=== PATIENT | male | born 1980 | race Caucasian/White ===

== ENCOUNTER 2017-07-23 19:00 | Day surgery (SDC) | payer OTHER ==
[~2017-07-23] VITALS: Ht 182.9 cm; Wt 99.8 kg
[2017-07-23] MEDS ORDERED: fentaNYL INJECTION 100 MCG/2 ML AMP IVP ONE ×3 (19:45→20:45)
[2017-07-23] MEDS ORDERED: CATHETER FLUSH 10 ML SYR IV PRN (19:45)
[2017-07-23 19:53] LABS: BASOPHILS % (AUTO) 0 % (0-10); EOSINOPHILS # (AUTO) 0.2 10^3/uL (0.0-0.3); EOSINOPHILS % (AUTO) 3 % (0-10); HEMATOCRIT 47 % (40-54); HEMOGLOBIN 16.2 G/DL (13.3-17.7); LYMPHOCYTES # (AUTO) 1.8 X 10^3 (1.0-4.0); LYMPHOCYTES % (AUTO) 18 % (12-44); MEAN CORPUSCULAR HEMOGLOBIN 30 PG (25-34); MEAN CORPUSCULAR HGB CONC 34 G/DL (32-36); MEAN CORPUSCULAR VOLUME 88 FL (80-99); MEAN PLATELET VOLUME 9.9 FL (7.4-10.4); MONOCYTES # (AUTO) 0.6 X 10^3 (0.0-1.0); MONOCYTES % (AUTO) 6 % (0-12); NEUTROPHILS # (AUTO) 7.1 X 10^3 (1.8-7.8); NEUTROPHILS % (AUTO) 73 % (42-75); PLATELET COUNT 234 10^3/uL (130-400); RED BLOOD COUNT 5.39 10^6/uL (4.35-5.85); RED CELL DISTRIBUTION WIDTH 12.5 % (10.0-14.5); WHITE BLOOD COUNT 9.7 10^3/uL (4.3-11.0)
[2017-07-23] MEDS ORDERED: MIDAZOLAM 5 MG/5 ML (VERSED) VIAL ONE ×2 (19:53→20:17)
[2017-07-23] MEDS: NS IV 1000 ML 1,000 ML IV SCH (20:00)
[2017-07-23] MEDS ORDERED: NS IV 1000 ML 1,000 ML ONE (20:02)
--- NOTE | 2017-07-23 20:05 | Diagnostic Imaging Report ---
INDICATION: Left ankle injury. COMPARISON: None. EXAMINATION: Three views of the left ankle were obtained. FINDINGS: Dislocation of the ankle mortise. The talus is displaced in the posterior lateral direction. There is a displaced angulated fracture of the distal fibula. The visualized medial malleolus is intact. IMPRESSION: Complex ankle fracture with severe dislocation. Dictated by: Dictated on workstation # [id number]
[2017-07-23] MEDS ORDERED: KETAMINE HCL 100 MG/ML 5 ML VIAL ONE (20:17)
[2017-07-23 20:21] LABS: BUN/CREATININE RATIO 14; CALCIUM 9.5 MG/DL (8.5-10.1); CARBON DIOXIDE 24 MMOL/L (21-32); CHLORIDE 104 MMOL/L (98-107); CREATININE SERUM 1.31 MG/DL (0.60-1.30); GFR ESTIMATED > 60; GLUCOSE 94 MG/DL (70-105); POTASSIUM 3.6 MMOL/L (3.6-5.0); SODIUM 142 MMOL/L (135-145)
--- NOTE | 2017-07-23 20:42 | Diagnostic Imaging Report ---
INDICATION: Post reduction. COMPARISON: 07/23/2017. EXAMINATION: Two views of the left ankle were obtained. FINDINGS: Relocation of the ankle mortise. There is improved alignment of the distal fibula fracture. IMPRESSION: Satisfactory post reduction views. Dictated by: Dictated on workstation # [id number]
[2017-07-23] MEDS ORDERED: KETAMINE HCL 100 MG/ML 5 ML VIAL IV ONE (20:45)
[2017-07-23] MEDS ORDERED: MIDAZOLAM 2 MG/2 ML (VERSED) VIAL IVP ONE ×2 (20:45)
--- NOTE | 2017-07-23 21:24 | History & Physicial ---
History of Present Illness History of Present Illness Reason for visit/HPI left ankle injury Mr. Mcrae is a 37 y/o white male who sustained a left ankle injury while at [facility] at 1745, this evening. He states that he was [place]. He immediately experienced pain in the left ankle and noted a gross deformity. Due to this EMS was called, and the patient elected to transfer to [facility], via private vehicle. He denies LOC or injury elsewhere. He denies loss of sensation in the foot or coldness. Date of Admission 07/23/17 Date Seen by Provider: Jul 23, 2017 Time Seen by Provider: 08:00 I consulted on this patient on 07/23/17 20:[address]ending [address]ician [address]LY Hamm Dr. Admitting Physician Dr. Russell Consult Allergies and Home Medications Allergies Coded Allergies: No Known Drug Allergies (Unverified , 07/23/17) Home Medications No Active Prescriptions or Reported Meds Past Todicdu-Wuchxx-Fmxjof Hx Patient Social History Alcohol Use: Occasionally Uses Recreational Drug Use: No Smoking Status: Never a Smoker Recent Foreign Travel: No Contact w/other who traveled: No Recent Hopitalizations: No Recent Infectious Disease Expo: No Immunizations Up To Date Date of Influenza Vaccine: Apr 25, 2017 Seasonal Allergies Seasonal Allergies: No Respiratory No Cardiovascular No Integumentary History of Skin or Integumenta: No Constitutional: see HPI, No chills, No dizziness, No fever Respiratory: no symptoms reported Cardiovascular: no symptoms reported Gastrointestinal: no symptoms reported Musculoskeletal: see HPI Skin: no symptoms reported Psychiatric/Neurological: No Symptoms Reported Physical Exam Vital Signs Vital Sign - Last 12Hours 07/23/17 07/23/17 19:40 20:00 Temp 99.0 Pulse 83 Resp 22 B/P (MAP) 136/88 (104) O2 Delivery Nasal Cannula O2 Flow Rate 2.00 Capillary Refill : Less Than 3 Seconds General Appearance: Mild Distress Eyes: Bilateral Eye Normal Inspection, Bilateral Eye PERRL, Bilateral Eye EOMI HEENT: Normal ENT Inspection, Pharynx Normal Neck: Full Range of Motion, Normal Inspection, Non Tender Respiratory: No Accessory Muscle Use, No Respiratory Distress Cardiovascular: Regular Rate, Rhythm, No Edema Gastrointestinal: Soft Back: Normal Inspection, No Vertebral Tenderness Extremity: Normal Capillary Refill, Other (Posterior lateral dislocation of the left ankle. Lateral rotation. Sensation and dorsalis pulses intact. Able to move toes. ) Neurologic/Psychiatric: Alert, Oriented x3, No Motor/Sensory Deficits, Normal Mood/Affect, executive vice president of sales II-XII Norm as Tested Skin: Normal Color Comments X-ray interpretation 3 view left ankle: Posterior/lateral ankle dislocation with distal fibula fracture present 2 view left ankle post reduction: adequate reduction, with distal fibula fracture present. No obvious tibia fracture present Procedure: Left ankle fracture/dislocation reduction performed Patient consent obtain Conscious sedation performed Reduction performed with traction and manipulation, and was successful with first attempt Post reduction x-rays revealed successful and adequate reduction Patient placed in a posterior and u-splint Patient tolerated procedure well, and without incident Assessment/Plan Assessment and Plan left ankle fracture dislocation Left fibula fracture Admit to Observation at this time and obtain a CT of the ankle Plan for ORIF of left ankle in the morning Problems: Admission Diagnosis left ankle fracture/dislocation CONI LYONS Jul 23, 2017 21:24
--- NOTE | 2017-07-23 21:46 | Diagnostic Imaging Report ---
PROCEDURE: CT left lower extremity without contrast. TECHNIQUE: Multiple contiguous axial images were obtained through the left lower extremity without the use of intravenous contrast. Sagittal and coronal reformations were then performed. INDICATION: Ankle trauma COMPARISON: 07/23/2017 FINDINGS: A nondisplaced fracture is seen involving the posterior medial aspect of the tibia. The medial malleolus appears intact. There is some bony fragmentation between the fibula and the tibia articulation. The distal tibia fracture is well aligned. The ankle mortise is intact. Soft tissue swelling is noted. Visualized tarsal bones appear unremarkable. IMPRESSION: 1. Posterior medial tibial metaphysis fracture with comminution. Medial malleolus is intact. 2. Stable well aligned distal fibula fracture. 3. Well aligned ankle mortise. Dictated by: Dictated on workstation # [id number]
[2017-07-23 22:15] VITALS: BP 129/81
[2017-07-23] MEDS ORDERED: morphine INJ 4 MG/ML 1 ML (VIAL/SYRINGE) IV PRN (22:30)
[2017-07-23] MEDS: LACTATED RINGERS 1,000 ML IV SCH (22:41)
[2017-07-24] VITALS: BP 141/69
[2017-07-24 04:00] VITALS: BP 118/58
[2017-07-24] MEDS ORDERED: fentaNYL INJECTION 100 MCG/2 ML AMP ONE ×2 (07:30→08:26)
[2017-07-24] MEDS ORDERED: MIDAZOLAM 2 MG/2 ML (VERSED) VIAL ONE (07:30)
[2017-07-24] MEDS ORDERED: ceFAZolin 1,000 MG (ANCEF) VIAL ONE (07:41)
[2017-07-24] MEDS: LACTATED RINGERS 1,000 ML IV SCH ×2 (07:50→09:20)
[2017-07-24] MEDS: NS IV 1000 ML 1,000 ML IV SCH (08:06)
[2017-07-24] MEDS ORDERED: BUPIVACAINE 0.25% 30 ML (SENSORCAINE) VIAL ONE (08:15)
[2017-07-24] MEDS ORDERED: ONDANSETRON 4 MG/2 ML (SDV) Z0FRAN ONE (08:27)
[2017-07-24] MEDS ORDERED: SEVOFLURANE (ULTANE) 15 ML INHAL SOLN ONE ×5 (08:27→10:00)
[2017-07-24] MEDS ORDERED: DEXAMETHASONE 10 MG/ML (DECADRON) 1 ML VIAL ONE (08:27)
[2017-07-24] MEDS ORDERED: LIDOCAINE PF 2% 5 ML (XYLOCAINE) VIAL ONE (08:27)
[2017-07-24] MEDS ORDERED: proPOfol 200 MG/20 ML (DIPRIVAN) VIAL IV ONE (08:27)
[2017-07-24] MEDS ORDERED: morphine INJ 10 MG/ML 1ML (SYR OR VIAL) ONE (09:36)
--- NOTE | 2017-07-24 10:00 | History & Physical-Surgical ---
HPO-Surgical History of Present Illness Chief Complaint: PT REPORTS HE WAS JUMPING ON TRAMPOLINES ET INJURED LEFT ANKLE. VISUALLY DISPLACED. PULSES PRESENT. JOSE MCHUGH AT BEDSIDE. Diagnosis/Surgical Indication: Fracture/dislocation Left ankle Procedure: ORIF Left ankle fracture Date of Surgery: Jul 24, 2017 Weight (Pounds): 220 Weight (Ounces): 0.0 Height (Feet): 6 Height (Inches): 0.00 Allergies and Home Medications Allergies Coded Allergies: No Known Drug Allergies (Unverified , 07/23/17) Home Medications No Active Prescriptions or Reported Meds Past Szewhzt-Bewcdp-Mlyccu Hx Patient Social History Marrital Status: Employed/Student: employed Alcohol Use: Occasionally Uses Recreational Drug Use: No Smoking Status: Never a Smoker Physical Abuse Screen: No Sexual Abuse: No Recent Foreign Travel: No Contact w/other who traveled: No Recent Hopitalizations: No Recent Infectious Disease Expo: No Immunizations Up To Date Tetanus Booster (TDap): More than 5yrs Date of Influenza Vaccine: May 25, 2017 Seasonal Allergies Seasonal Allergies: No Surgeries Yes Orthopedic Respiratory No Cardiovascular No Neurological No Reproductive System Sexually Transmitted Disease: No HIV/AIDS: No Genitourinary No Gastrointestinal No Musculoskeletal No Endocrine History of Endocrine Disorders: No HEENT History of HEENT Disorders: No Cancer No Psychosocial History of Psychiatric Problem: No Integumentary History of Skin or Integumenta: No Blood Transfusions History of Blood Disorders: No Adverse Reaction to a Blood Tr: No Family Medical History Significant Family History: No Pertinent Family Hx (Noncontributory with regards to the chief complaint.) Exam Vital Signs Vital Signs 07/23/17 07/24/17 20:00 04:00 Temp 99.0 Pulse 70 Resp 14 B/P (MAP) 118/58 (78) Pulse Ox 96 O2 Delivery Room Air O2 Flow Rate 2.00 Capillary Refill : Less Than 3 SecondsLess Than 3 Seconds Labs Laboratory Tests Test 07/23/17 19:45 Range/Units White Blood Count 9.7 4.3-11.0 10^3/uL Red Blood Count 5.39 4.35-5.85 10^6/uL Hemoglobin 16.2 13.3-17.7 G/DL Hematocrit 47 40-54 % Mean Corpuscular Volume 88 80-99 FL Mean Corpuscular Hemoglobin 30 25-34 PG Mean Corpuscular Hemoglobin Concent 34 32-36 G/DL Red Cell Distribution Width 12.5 10.0-14.5 % Platelet Count 234 130-400 10^3/uL Mean Platelet Volume 9.9 7.4-10.4 FL Neutrophils (%) (Auto) 73 42-75 % Lymphocytes (%) (Auto) 18 12-44 % Monocytes (%) (Auto) 6 0-12 % Eosinophils (%) (Auto) 3 0-10 % Basophils (%) (Auto) 0 0-10 % Neutrophils # (Auto) 7.1 1.8-7.8 X 10^3 Lymphocytes # (Auto) 1.8 1.0-4.0 X 10^3 Monocytes # (Auto) 0.6 0.0-1.0 X 10^3 Eosinophils # (Auto) 0.2 0.0-0.3 10^3/uL Basophils # (Auto) 0.0 0.0-0.1 10^3/uL Sodium Level 142 135-145 MMOL/L Potassium Level 3.6 3.6-5.0 MMOL/L Chloride Level 104 98-107 MMOL/L Carbon Dioxide Level 24 21-32 MMOL/L Anion Gap 14 5-14 MMOL/L Blood Urea Nitrogen 18 7-18 MG/DL Creatinine 1.31 H 0.60-1.30 MG/DL Estimat Glomerular Filtration Rate > 60 BUN/Creatinine Ratio 14 Glucose Level 94 70-105 MG/DL Calcium Level 9.5 8.5-10.1 MG/DL General Appearance: Alert, Oriented X3, Cooperative, No Acute Distress HEENT: Atraumatic, PERRLA Respiratory: Normal Air Movement Cardiovascular: Regular Rate Abdominal: Soft, No Tenderness Extremities: Other (LLE: splint in place Left ankle, foot well perfused, no increased pain with AROM of the digits, motor/sensation grossly intact.) Skin: No Significant Lesion Neuro: Strength at 5/5 X4 Ext, Sensation Intact, Cranial Nerves 3-12 NL Psych/Mental Status: Mental Status NL Assessment/Plan Assessment and Plan A: Fracture/dislocation Left ankle, s/p closed reduction in the ED. Unstable injury P: Will need operative fixation Will plan to proceed with surgery today. Risks/benefits of surgery explained in detail. All of the patient's questions have been answered to his satisfaction. The patient has given informed written consent to proceed as planned. Problems: Admission Diagnosis Fracture/dislocation Left ankle. LEXUS HUFFMAN DO Jul 24, 2017 10:00
--- NOTE | 2017-07-24 10:04 | Operative Report ---
Operative Report Date of Procedure/Surgery Jul 24, 2017 Surgeon (s) LEXUS HUFFMAN DO Beaver Trapper (s): Francisco Javier Richardson PA-C Post-Operative Diagnosis Displaced, comminuted fracture Left fibula Disruption of the syndesmosis Left ankle Procedure Performed ORIF Left fibula ORIF Left syndesmosis Description of Procedure Anesthesia Type: General Estimated blood loss (mL): 15 mL Specimen(s) collected/removed None Description of the Procedure Open reduction and internal fixation Left fibula; open reduction/internal fixation syndesmosis Left ankle. Findings of the Procedure Comminuted, displaced, unstable fracture Left fibula; complete disruption of the syndesmosis Left ankle with gross instability. Allergies and Home Medications Allergies Coded Allergies: No Known Drug Allergies (Unverified , 07/23/17) Home Medications No Active Prescriptions or Reported Meds LEXUS HUFFMAN DO Jul 24, 2017 10:04
[2017-07-24] MEDS ORDERED: oxyCODONE/APAP 5/325MG (PERCOCET 5) TABLET PO PRN (10:15)
[2017-07-24] MEDS ORDERED: ONDANSETRON 4 MG/2 ML (SDV) Z0FRAN IV PRN (10:15)
--- NOTE | 2017-07-24 11:35 | Diagnostic Imaging Report ---
EXAMINATION: Left ankle, fluoroscopic images. COMPARISON: July 23, 2017. HISTORY: 37-year-old female, left ankle fracture. FINDINGS: 28.3 seconds of fluoroscopic time was utilized for assistance with procedure. There has been placement of sideplate and screw fixation hardware along the distal fibula with fixation screws traversing across the syndesmosis. There are additional fibular screws. There are limitations of bone detail on fluoroscopic imaging. IMPRESSION: 1. Fluoroscopy for assistance with surgery. Dictated by: Dictated on workstation # [id number]
--- NOTE | 2017-07-24 11:51 | Discharge Inst-Surgical ---
Discharge Inst-Surgical Depart Medication/Instructions New, Converted or Re-Newed RX: RX on Chart Patient Instructions Please take 325mg of enteric coated aspirin daily for 3 weeks to help prevent blood clots. Consults/Follow Up Goal/Follow Up Appt.: Follow-up with Dr. Huffman at [address] in 10 days; please call the office to confirm your appointment. Activity Activity as Tolerated: Yes Strict Non Weight Bearing on you left leg. Walking Assistive Device: Crutches Activity Instructions: Avoid Stress to Incision Elevate Extremity: Elevate Above Heart Driving Instructions: No Driving/Refer to Dr. Carmona Spirometry: Every 2 Hours While Awake Diet Discharge Diet: No Restrictions Skin/Wound Care Infection Signs and Symptoms: Increased Redness, Increased Drainage, Increased Swelling, Temperature Above 101 F Wound Care Comment: Keep splint on at all times; do not remove splint; do not get splint wet. Bathing Instructions: Shower Ice Pack: Ice On and Off Site LEXUS HUFFMAN DO Jul 24, 2017 11:51
[2017-07-24] MEDS ORDERED: OXYC-471 PO (11:52)
[2017-07-24 12:03] VITALS: BP 135/87
--- NOTE | 2017-07-24 12:16 | Physical Therapy Evaluation ---
PT Evaluation-General Medical Diagnosis Admission Date Jul 23, 2017 at 20:57 Medical Diagnosis: L ankle ORIF Onset Date: Jul 23, 2017 Therapy Diagnosis Therapy Diagnosis: decreased mobility Height/Weight Height (Feet): 6 Height (Inches): 0.00 Weight (Pounds): 220 Weight (Ounces): 0.0 Precautions Precautions/Isolations: Standard Precautions Weight Bear Status Right Lower Extremity: Right Full Weight Bearing Left Lower Extremity: Left Non Weight Bearing Referral Physician: Dr. Russell Reason for Referral: Evaluation/Treatment Medical History Current History Pt. fell at [facility], sustained L ankle fracture. Reviewed History: Yes Social History Home: Single Level Current Living Status: Spouse Entry Into Home: Stairs Without Railing PT Steps Into Home: 2 Prior/Core FIM Prior Level of Function Functional [place] Measure 0=Not Assessed/NA 4=Minimal Assistance 1=Total Assistance 5=Supervision or Setup 2=Maximal Assistance 6=Modified [place] 3=Moderate Assistance 7=Complete [place] Bed Mobility: 7 Transfers (B,C,W/C) (FIM): 7 Gait: 7 Locomotion: 7 PT Evaluation-Current Subjective Pt. agrees to therapy, reports planning to D/C this date. Pt/Family Goals home with spouse Objective Patient Orientation: Normal For Age Problem Solving: Good ROM/Strength ROM Upper Extremities WNL ROM Lower Extremities WNL, except L ankle Strength Upper Extremities WNL Strength Lower Extremities WNL R LE, not tested L LE Integumentary/Posture Integumentary see nursing notes Bowel Incontinence: No Bladder Incontinence: No Posture generally upright Neuromuscular (Tone, Coordination, Reflexes) intact Sensory Vision: Functional Hearing: Functional Sensation Right Upper Extremit: Intact Sensation Left Upper Extremity: Intact Sensation Right Lower Extremit: Intact Sensation Left Lower Extremity: Intact Transfers Functional [place] Measure 0=Not Assessed/NA 4=Minimal Assistance 1=Total Assistance 5=Supervision or Setup 2=Maximal Assistance 6=Modified [place] 3=Moderate Assistance 7=Complete [place] Transfers (B, C, W/C) (FIM): 6 Sit to/from Stand: 6 Gait Mode of Locomotion: Walk Anticipated Mode of Locomotion: Walk Gait (FIM): 4 Distance (FIM): 7=930-33 ft Distance: 100 ft Gait Level of Assist: 4 Gait Persons Needed: 1 Gait Assistive Device: Crutches Comments/Gait Description CGA/SBA, cues for proper gait sequence with crutches Stairs Pt. declines stair training. We did discuss proper sequence with crutches and he verbalizes good understanding. Balance Sitting Static: Good Sitting Dynamic: Good Standing Static: Good Standing Dynamic: Fair Assessment/Needs Pt. is a 37 y.o. male s/p L ankle ORIF following fracture who presents with decreased mobility. Pt. is currently NWB L ankle and completed crutch training. Pt. demonstrated safety and good understanding with crutches, plans to D/C home this date. Rehab Potential: Good PT Short Term Goals Short Term Goals Time Frame: Jul 24, 2017 Transfers (B,C,W/C) (FIM): 6 Gait (FIM): 4 Distance (FIM): 6=111-66 ft Gait Assistive Device: Crutches PT Plan Treatment/Plan Treatment Plan: Discontinue PT, goals met Treatment Plan: Gait, Transfers Treatment Duration: Jul 24, 2017 Frequency: 1 visit and discharge Estimated Hrs Per Day: Other Patient and/or Family Agrees t: Yes Discharge Recommendations Equpiment Recommendations-D/C: Crutches Time/GCodes Time In: 1140 Time Out: 1200 Total Billed Treatment Time: 20 Total Billed Treatment 1, SHIRLEY 20' ISAURA MCELROY PT Jul 24, 2017 12:16
[2017-07-24 14:15] VITALS: BP 135/87
--- NOTE | 2017-07-25 13:51 | OPERATIVE REPORT ---
DATE OF SERVICE: 07/24/2017 PREOPERATIVE DIAGNOSES: 1. Closed, fracture dislocation, left ankle. 2. Disruption of the syndesmosis, left ankle. OPERATION PERFORMED: 1. Open reduction and internal fixation closed fracture dislocation, left ankle which included the comminuted fracture of the left distal fibula. 2. Open reduction and internal fixation syndesmotic disruption, left ankle. ATTENDING SURGEON: Dr. Lexus Huffman. MEDICAL INSURANCE BILLER: Francisco Javier Richardson PA-C; Mr. Richardson assistance was needed secondary to the complexity of this case, and to hold the critical and necessary retractors and to increase the efficiency and efficacy of the case. ANESTHESIA: General. ESTIMATED BLOOD LOSS: 10 mL. COMPLICATIONS: None. SPECIMENS: None. DRAINS: None. BRIEF HISTORY AND INDICATIONS: The patient is a pleasant 37-year-old male sustained an injury to his left ankle [place]. He had gross deformity of his left ankle, severe pain and an inability to bear weight or ambulate on his left lower extremity. He was transferred to the Emergency Department at [facility] where plain radiographs demonstrated a fracture dislocation of the left ankle which included a comminuted fracture of the left fibula and obvious disruption of the syndesmosis articulation. The patient underwent a successful closed reduction of the left ankle in the Emergency Department. He was admitted to the orthopedic service for definitive management of his injury. Preoperatively, the patient's left lower extremity was otherwise stable, this was a closed injury, there were no open wounds. His motor and sensory function were grossly intact, he had only mild posttraumatic edema surrounding the ankle, all compartments were soft and compressible, motor and sensation was grossly intact, the left foot was well perfused. I discussed the nature of this injury in detail with the patient as well as the need for operative fixation. I explained the operative procedure in detail with the patient, which included the risks, benefits, potential complications and expected outcomes. After having this detailed discussion, the patient gave informed written consent to proceed as planned after all of his questions were answered to his satisfaction. PROCEDURE NOTE: After correctly identifying the patient as the patient the preoperative holding area and after his left lower extremity was appropriately marked he was transferred to the operating room. Once in the operating room, the patient had successful induction of general anesthesia. Then, he was transferred to the radiolucent OR table and placed in the supine position. All bony prominences were meticulously padded. A nonsterile tourniquet was placed on the upper thigh of the left lower extremity. The left leg was then prepped and draped in the routine sterile orthopedic fashion. Prior to beginning the case, we completed an operating room timeout and verified appropriate infusion of prophylactic antibiotics. The tourniquet was then elevated to 300 mmHg after exsanguination of the left leg with an Esmarch bandage. I then used a sterile marking pen to pankaj out my planned a lateral approach to the ankle and then made an incision of approximately 10 cm in length incising through the skin and subcutaneous tissue after injecting local anesthetic. After incising through the skin and subcutaneous tissue, blunt Metzenbaum scissors were used to dissect through the deeper subcutaneous tissue and fascia of the lateral compartment, taking great care to protect the superficial branch of the peroneal nerve. I then identified the comminuted fracture of the distal fibula and debrided it in the usual fashion using both sharp and blunt techniques to minimize periosteal stripping. I reduced this comminuted fracture in the standard fashion with the [id number] reduction tenaculums and then applied absolute fixation of the fracture with a series of 2.7 mm fully threaded cortical lag screws. I then applied a Synthes variable angle distal fibular plate in neutralization mode on the distal fibula and completed the fixation both proximally and distally to the fracture in standard fashion with a series of both locking and nonlocking screws. At this point, I then completed an external rotation stress exam under fluoroscopy which did demonstrate medial clear space widening and widening of the syndesmotic articulation thereby confirming disruption and instability of the syndesmosis. As such, I did a further distal dissection exposing the anterior portion of the syndesmosis articulation, confirming obvious disruption of the anterior inferior tib-fib ligament. I completed an open reduction of the syndesmosis under fluoroscopic guidance and this reduction was held temporarily in place with a 2.0 mm K wire placed from lateral to medial. I then applied two 3.5 mm fully threaded cortical screws across the syndesmosis through the plate under fluoroscopic guidance achieving 4 cortices of fixation with both screws, thereby to complete the fixation of the syndesmosis after anatomic reduction. I then completed a subsequent and final external rotation stress exam under fluoroscopy and this confirmed stability of the syndesmosis as there was no secondary medial clear space widening or widening of the syndesmosis articulation. At this point, our fixation was complete. Final C-arm fluoroscopy imaging confirmed appropriate placement of all hardware and a stable ankle mortise. The tourniquet was then deflated, meticulous hemostasis was achieved, the wound was irrigated with copious amounts of sterile saline and then standard closure began and was completed with 0 Vicryl for the deep fascia, 2-0 Vicryl for the subcutaneous tissue and 3-0 nylon for the skin. The patient had a sterile dressing applied followed by a well-padded three-sided splint. He was then awakened from general anesthesia in the operating room without complications and then transferred to the PACU in stable condition. He tolerated the procedure well without complications. All counts were correct at the end of the case. Job ID: [id number] DocumentID: [id number] Dictated Date: 07/25/2017 12:06:39 Exhibit Technician Date: 07/25/2017 13:50:27 Dictated By: LEXUS HUFFMAN
== END 2017-07-24 14:10 | disposition home or self-care (01) ==
LOC: EDUNIT# 19:00 → ER 19:04 → 4TH 20:57 → SDC 20:57 → 4TH 20:57 → UNDOADMOB 20:57 → SDC 07-24 14:10 → UNDODISOB 07-24 14:10
PROVIDERS: ATTEND Orthopaedic Surgery Orthopaedic Trauma
DX: S82.392A Other fracture of lower end of left tibia, initial encounter for closed fracture (principal); S93.05XA Dislocation of left ankle joint, initial encounter; W19.XXXA Unspecified fall, initial encounter; Y92.838 Other recreation area as the place of occurrence of the external cause; Y93.44 Activity, trampolining
CPT/HCPCS: 29515; 36415; 73600; 73610; 73700; 80048; 85025; 87081; 93041; 94664